=== PATIENT | female | born 1940 | race Caucasian/White ===

== ENCOUNTER 2017-04-16 08:09 | Emergency (ER) | payer OTHER ==
[2017-04-16 08:15] VITALS: BP 158/93; PULSE 84; TEMP 98.4; BMI 29.2
--- NOTE | 2017-04-16 08:48 | PDOC ---
History of Present Illness - General Chief Complaint: Respiratory Stated Complaint: COUGH/ THROAT PAIN Time Seen by Provider: 04/16/17 08:23 History Source: Patient Exam Limitations: No Limitations - History of Present Illness Initial Comments: 04/16/17 08:42 c/o cough/ runny nose and some sinus pressure 04/16/17 13:38 Timing/Duration: reports: just prior to arrival Severity: reports: mild, moderate Associated Symptoms: reports: denies symptoms, cough, dizziness, facial pain, fever/chills Past History - Travel Traveled outside of the country in the last 30 days: No Close contact w/someone who was outside of country & ill: No - Past Medical History Allergies/Adverse Reactions: Allergies Allergy/AdvReac Type Severity Reaction Status Date / Time No Known Allergies Allergy Verified 04/16/17 08:13 Home Medications: Ambulatory Orders Ranitidine [Zantac -] 150 mg PO BID 07/22/15 Apixaban [Eliquis] 5 mg PO BID #0 07/23/15 Diltiazem Cd [Cardizem Cd -] 300 mg PO DAILY 07/23/15 Levothyroxine [Synthroid -] 50 mcg PO DAILY 11/26/15 Metoprolol Succinate [Toprol Xl] 50 mg PO BID 08/25/16 Pravastatin Sodium [Pravachol -] 40 mg PO HS 08/25/16 Acetaminophen [Tylenol .Regular Strength -] 650 mg PO Q6H PRN #0 tablet Cetirizine HCl [Zyrtec -] 10 mg PO DAILY #30 tablet 04/16/17 Anemia: No Asthma: No Cancer: No Cardiac Disorders: Yes (CHRONIC ISCHEMIC HEART DISEASE-Pacemaker) CVA: No COPD: No CHF: No Dementia: No Diabetes: No GI Disorders: Yes (REFLUX; DIVERTICULOSIS; H.PYLORI;H/H) Disorders: No HTN: Yes Hypercholesterolemia: Yes Liver Disease: No Seizures: No Thyroid Disease: Yes - Surgical History Abdominal Surgery: Yes Appendectomy: No Cardiac Surgery: Yes (PACEMAKER) Cholecystectomy: Yes Lung Surgery: No Neurologic Surgery: No Orthopedic Surgery: No - Psycho/Social/Smoking Cessation Hx Anxiety: No Suicidal Ideation: No Smoking Status: No Smoking History: Never smoked Have you smoked in the past 12 months: No Number of Cigarettes Smoked Daily: 0 Information on smoking cessation initiated: No Hx Alcohol Use: No Drug/Substance Use Hx: No Substance Use Type: None Hx Substance Use Treatment: No Review of Systems - Review of Systems Able to Perform ROS?: Yes Is the patient limited Monegasque proficient: Yes Constitutional: Yes: Symptoms Reported, See HPI, Malaise. No: Fever HEENTM: Yes: Symptoms Reported, See HPI, Nose Congestion Respiratory: Yes: Symptoms reported, See HPI, Cough (moist nonproductive ) ABD/GI: No: Symptoms Reported Integumentary: Yes: Symptoms Reported All Other Systems: Reviewed and Negative *Physical Exam - Vital Signs Last Vital Signs Temp Pulse Resp BP Pulse Ox 98.4 F 84 18 158/93 100 04/16/17 08:13 04/16/17 08:13 04/16/17 08:13 04/16/17 08:13 04/16/17 08:13 - Physical Exam General Appearance: Yes: Nourished, Appropriately Dressed. No: Apparent Distress HEENT: positive: GLADYS, TMs Normal (congested / landmarks easily visualized ), Pharynx Normal, Rhinorrhea (clear), Sinus Tenderness Neck: positive: Supple. negative: Tender, Lymphadenopathy (R), Lymphadenopathy (L) Respiratory/Chest: positive: Lungs Clear, Normal Breath Sounds. negative: Respiratory Distress, Wheezing Cardiovascular: positive: Regular Rate Gastrointestinal/Abdominal: positive: Soft. negative: Tender Extremity: positive: Normal Capillary Refill, Normal Inspection, Normal Range of Motion Integumentary: positive: Normal Color, Dry, Warm Neurologic: positive: peer financial counselor II-XII NML intact, Fully Oriented, Alert, Normal Mood/ Affect, Normal Response, Motor Strength 5/5 Progress Note - Progress Note Progress Note: Allergic Rhinitis, no evidence of bacterial infection, therefore will treat with conservative measures as patient reluctant to take any other medications and encourage antihistamine use *DC/Admit/Observation/Transfer Diagnosis at time of Disposition: Allergic rhinitis Qualifiers: Allergic rhinitis trigger: other Allergic rhinitis seasonality: unspecified seasonality Qualified Code(s): J30.89 - Other allergic rhinitis - Discharge Dispostion Disposition: HOME Condition at time of disposition: Stable Admit: No - Prescriptions Prescriptions: Cetirizine HCl [Zyrtec -] 10 mg PO DAILY #30 tablet - Referrals Referrals: Hira Martinez MD [Primary Care Provider] - - Patient Instructions Printed Discharge Instructions: DI for Allergic Rhinitis Additional Instructions: Rest, drink lots of fluids: Teas, water, soups Saltwater gargles. Consider humidifier in room at night Steamy showers/seem to face break up mucus Avoid contact with allergens, exposure to pollens, close windows on a windy day Lots of handwashing and good hygiene Continue [id number] medications for symptomatic relief- may use allergic eyedrops for itching I Continue antihistamines daily until pollen season is over; Zyrtec, Claritin, Majo during the daytime and Benadryl at nighttime as will make sleepy Tylenol or Motrin for fever and pain Followup with private physician in one to 2 days as needed Consider following up with an painter foreman/sas programmer for skin testing and possible allergy shots Return to emergency department for worsened symptoms, fevers, dehydration
--- NOTE | 2017-04-16 09:56 | PDOC ---
History of Present Illness - General Chief Complaint: Respiratory Stated Complaint: COUGH/ THROAT PAIN Time Seen by Provider: 04/16/17 08:23 History Source: Patient Exam Limitations: No Limitations - History of Present Illness Initial Comments: 04/16/17 15:21 Patient came to emergency department for evaluation of nasal congestion, sinus fullness, runny nose, and some moist cough. Denies fever, denies phlegm production, denies chest pain or palpitations, no one at home is sick. Patient states suffers from seasonal ALLERGIES but has not taken any medications for relief of same. 04/16/17 15:26 Timing/Duration: reports: just prior to arrival, getting worse Severity: reports: mild, moderate Associated Symptoms: reports: chest pain/soreness, cough, fever/chills, headache , nasal congestion Past History - Travel Traveled outside of the country in the last 30 days: No Close contact w/someone who was outside of country & ill: No - Past Medical History Allergies/Adverse Reactions: Allergies Allergy/AdvReac Type Severity Reaction Status Date / Time No Known Allergies Allergy Verified 04/16/17 08:13 Home Medications: Ambulatory Orders Ranitidine [Zantac -] 150 mg PO BID 07/22/15 Apixaban [Eliquis] 5 mg PO BID #0 07/23/15 Diltiazem Cd [Cardizem Cd -] 300 mg PO DAILY 07/23/15 Levothyroxine [Synthroid -] 50 mcg PO DAILY 11/26/15 Metoprolol Succinate [Toprol Xl] 50 mg PO BID 08/25/16 Pravastatin Sodium [Pravachol -] 40 mg PO HS 08/25/16 Acetaminophen [Tylenol .Regular Strength -] 650 mg PO Q6H PRN #0 tablet Cetirizine HCl [Zyrtec -] 10 mg PO DAILY #30 tablet 04/16/17 Anemia: No Asthma: No Cancer: No Cardiac Disorders: Yes (CHRONIC ISCHEMIC HEART DISEASE-Pacemaker) CVA: No COPD: No CHF: No Dementia: No Diabetes: No GI Disorders: Yes (REFLUX; DIVERTICULOSIS; H.PYLORI;H/H) Disorders: No HTN: Yes Hypercholesterolemia: Yes Liver Disease: No Seizures: No Thyroid Disease: Yes - Surgical History Abdominal Surgery: Yes Appendectomy: No Cardiac Surgery: Yes (PACEMAKER) Cholecystectomy: Yes Lung Surgery: No Neurologic Surgery: No Orthopedic Surgery: No - Psycho/Social/Smoking Cessation Hx Anxiety: No Suicidal Ideation: No Smoking Status: No Smoking History: Never smoked Have you smoked in the past 12 months: No Number of Cigarettes Smoked Daily: 0 Information on smoking cessation initiated: No Hx Alcohol Use: No Drug/Substance Use Hx: No Substance Use Type: None Hx Substance Use Treatment: No Review of Systems - Review of Systems Able to Perform ROS?: Yes Comments:: 04/16/17 15:27 Is the patient limited Italian proficient: Yes Constitutional: Yes: Symptoms Reported, See HPI, Malaise. No: Fever HEENTM: Yes: Symptoms Reported, See HPI, Nose Congestion. No: Throat Pain Respiratory: Yes: Symptoms reported, See HPI, Cough. No: Wheezing Cardiac (ROS): No: Symptoms Reported Integumentary: Yes: Symptoms Reported, See HPI All Other Systems: Reviewed and Negative *Physical Exam - Vital Signs Last Vital Signs Temp Pulse Resp BP Pulse Ox 98.4 F 84 18 158/93 100 04/16/17 08:13 04/16/17 08:13 04/16/17 08:13 04/16/17 08:13 04/16/17 08:13 - Physical Exam General Appearance: Yes: Appropriately Dressed, Apparent Distress HEENT: positive: GLADYS, Normal ENT Inspection, TMs Normal, Pharynx Normal, Rhinorrhea Neck: positive: Supple Respiratory/Chest: positive: Lungs Clear, Normal Breath Sounds Gastrointestinal/Abdominal: positive: Tender, Soft Extremity: positive: Normal Capillary Refill, Normal Inspection, Tender Integumentary: positive: Dry, Pale. 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 And follow-up with her PMD this week *DC/Admit/Observation/Transfer Diagnosis at time of Disposition: Allergic rhinitis Qualifiers: Allergic rhinitis trigger: other Allergic rhinitis seasonality: unspecified seasonality Qualified Code(s): J30.89 - Other allergic rhinitis - Discharge Dispostion Disposition: HOME Condition at time of disposition: Stable - Prescriptions Prescriptions: Cetirizine HCl [Zyrtec -] 10 mg PO DAILY #30 tablet - Referrals Referrals: Hira Martinez MD [Primary Care Provider] - - Patient Instructions Printed Discharge Instructions: DI for Allergic Rhinitis Additional Instructions: Rest, drink lots of fluids: Teas, water, soups Saltwater gargles. Consider humidifier in room at night Steamy showers/seem to face break up mucus Avoid contact with allergens, exposure to pollens, close windows on a windy day Lots of handwashing and good hygiene Continue [id number]-rin-[id number] medications for symptomatic relief- may use allergic eyedrops for itching I Continue antihistamines daily until pollen season is over; Zyrtec, Claritin, Majo during the daytime and Benadryl at nighttime as will make sleepy Tylenol or Motrin for fever and pain Followup with private physician in one to 2 days as needed Consider following up with an hatchery helper/automatic line set up mechanic for skin testing and possible allergy shots Return to emergency department for worsened symptoms, fevers, dehydration
== END 2017-04-16 08:54 | disposition home or self-care (01) ==
LOC: JERFT 08:09
DX: J30.89 Other allergic rhinitis (principal); E78.00 Pure hypercholesterolemia, unspecified; I25.9 Chronic ischemic heart disease, unspecified; I10 Essential (primary) hypertension; Z95.0 Presence of cardiac pacemaker
CPT/HCPCS: 99281-25

== ENCOUNTER 2019-03-05 18:30 | Emergency (ER) | payer OTHER ==
[2019-03-05] MEDS ORDERED: ACETAMINOPHEN 325 MG TABLET (FP) ONE (19:02)
[2019-03-05 19:04] VITALS: BP 143/62; PULSE 86; TEMP 100.7; BMI 28.9
[2019-03-05] MEDS ORDERED: ACETAMINOPHEN 325 MG TABLET (FP) PO ONE (19:04)
--- NOTE | 2019-03-05 21:12 | PDOC ---
History of Present Illness - General Chief Complaint: Rash Stated Complaint: ABD PAIN Time Seen by Provider: 03/05/19 20:34 History Source: Patient Exam Limitations: No Limitations - History of Present Illness Initial Comments: 03/05/19 21:09 78 year old female with history of pacemaker, thyroid, HTN, cholesterol and surgical history of hysterectomy, cholecystectomy, repair of prolapse bladder, presents with rash to left side x 7 days. Reports rash is painful, itching, burning and hot. Treated with acetaminophen with some relief. Timing/Duration: reports: week Severity: Yes: severe Location: reports: torso Respiratory Risk Factors: reports: no cause identified Modifying Factors: improves with: calamine lotion, other (acetaminophen) Associated Symptoms: reports: blisters, rash, tingling Past History - Travel Traveled outside of the country in the last 30 days: No Close contact w/someone who was outside of country & ill: No - Past Medical History Allergies/Adverse Reactions: Allergies Allergy/AdvReac Type Severity Reaction Status Date / Time No Known Allergies Allergy Verified 03/05/19 18:54 Home Medications: Ambulatory Orders Apixaban [Eliquis] 5 mg PO BID #0 07/23/15 Diltiazem Cd [Cardizem Cd -] 240 mg PO DAILY 07/23/15 Levothyroxine [Synthroid -] 50 mcg PO DAILY 11/26/15 Metoprolol Succinate [Toprol Xl] 50 mg PO BID 08/25/16 Pravastatin Sodium [Pravachol -] 40 mg PO HS 08/25/16 Acetaminophen [Tylenol .Regular Strength -] 650 mg PO Q6H PRN #0 tablet Acetaminophen [8Hr Arthritis Pain Relief] 650 mg PO TID #20 tablet.er 03/05/19 Alendronate Sodium [Binosto] 70 mg PO WEEKLY 03/05/19 Cholecalciferol (Vitamin D3) [Vitamin D3 -] 2,000 unit PO DAILY 03/05/19 Diclofenac Sodium [Voltaren] 100 gm TP ASDIR 03/05/19 Fluticasone Propionate [Flonase Allergy Relief] 9.9 ml NS ASDIR 03/05/19 Omeprazole 20 mg PO DAILY 03/05/19 Valacyclovir HCl [Valtrex -] 1,000 mg PO TID #21 tablet 03/05/19 Anemia: No Asthma: No Cancer: No Cardiac Disorders: Yes (CHRONIC ISCHEMIC HEART DISEASE-Pacemaker) CVA: No COPD: No CHF: No Dementia: No Diabetes: No GI Disorders: Yes (REFLUX; DIVERTICULOSIS; H.PYLORI;H/H) Disorders: No HTN: Yes Hypercholesterolemia: Yes Liver Disease: No Seizures: No Thyroid Disease: Yes - Surgical History Abdominal Surgery: Yes Appendectomy: No Cardiac Surgery: Yes (PACEMAKER) Cholecystectomy: Yes Lung Surgery: No Neurologic Surgery: No Orthopedic Surgery: No - Suicide/Smoking/Psychosocial Hx Smoking Status: No Smoking History: Never smoked Have you smoked in the past 12 months: No Number of Cigarettes Smoked Daily: 0 Hx Alcohol Use: No Drug/Substance Use Hx: No Substance Use Type: None Hx Substance Use Treatment: No Review of Systems - Review of Systems Able to Perform ROS?: No Is the patient limited Icelandic proficient: No Constitutional: No: Chills, Fever, Malaise HEENTM: No: Throat Pain, Throat Swelling, Other Respiratory: No: Cough, Shortness of Breath Cardiac (ROS): No: Lightheadedness, Palpitations ABD/GI: No: Nausea, Poor Appetite, Poor Fluid Intake, Vomiting : No: Pain, Urgency Musculoskeletal: No: Back Pain, Muscle Weakness Integumentary: Yes: Lesions, Rash. No: Bruising, Erythema Neurological: Yes: Tingling Psychiatric: No: Frequent Crying, Stressors *Physical Exam - Vital Signs Last Vital Signs Temp Pulse Resp BP Pulse Ox 100.7 F H 86 18 143/62 95 03/05/19 19:03 03/05/19 19:03 03/05/19 19:03 03/05/19 19:03 03/05/19 19:03 - Physical Exam General Appearance: Yes: Nourished, Appropriately Dressed HEENT: positive: TMs Normal, Pharynx Normal Neck: positive: Supple. negative: Lymphadenopathy (R), Lymphadenopathy (L) Respiratory/Chest: positive: Lungs Clear Cardiovascular: positive: Regular Rhythm, Regular Rate Musculoskeletal: positive: Normal Inspection. negative: CVA Tenderness Extremity: positive: Normal Capillary Refill Integumentary: positive: Rash, Ecchymosis, Other (+ erythematous blistering left rib area anterior and posteriorly. Rash does not cross midline.) Neurologic: positive: Fully Oriented, Alert ED Treatment Course - Medications Given in the ED: ED Medications Discontinued Medications Generic Name Dose Route Start Last Admin Trade Name Annie PRN Reason Stop Dose Admin Acetaminophen 650 mg 03/05/19 19:04 03/05/19 19:05 Tylenol - PO 03/05/19 19:05 650 mg NOW ONE Administration Medical Decision Making - Medical Decision Making 03/05/19 21:34 78 year old female with history of pacemaker, thyroid, HTN, cholesterol and surgical history of hysterectomy, cholecystectomy, repair of prolapse bladder, presents with rash to left side x 7 days. Plan: shingles Rx: valcyclovir *DC/Admit/Observation/Transfer Diagnosis at time of Disposition: Shingles rash Qualifiers: Herpes zoster complications: without complications Qualified Code(s): B02.9 - Zoster without complications - Discharge Dispostion Disposition: HOME Condition at time of disposition: Good Decision to Admit order: No - Prescriptions Prescriptions: Acetaminophen [8Hr Arthritis Pain Relief] 650 mg PO TID #20 tablet.er Valacyclovir HCl [Valtrex -] 1,000 mg PO TID #21 tablet - Referrals - Patient Instructions Printed Discharge Instructions: DI for Shingles Additional Instructions: Please wear loose clothing Take acetaminophen as needed for pain Take prescribed medication until completed Call primary physician for follow up appointment tomorrow Print Language: ARGENTINE - Post Discharge Activity
== END 2019-03-05 21:57 | disposition home or self-care (01) ==
LOC: JERFT 18:30
DX: B02.9 Zoster without complications (principal); I25.9 Chronic ischemic heart disease, unspecified; I10 Essential (primary) hypertension; E78.00 Pure hypercholesterolemia, unspecified; K21.9 Gastro-esophageal reflux disease without esophagitis; Z95.0 Presence of cardiac pacemaker
CPT/HCPCS: 99281-25

== ENCOUNTER 2019-03-07 15:44 | Emergency (ER) | payer OTHER ==
[2019-03-07 15:57] VITALS: BP 154/70; PULSE 81; TEMP 98.1; BMI 28.8
--- NOTE | 2019-03-07 19:07 | PDOC ---
History of Present Illness - General Chief Complaint: Rash Stated Complaint: BACK PAIN Time Seen by Provider: 03/07/19 18:19 History Source: Patient Exam Limitations: Language Barrier - History of Present Illness Initial Comments: 03/07/19 18:57 Pt is a 78yo F with PMH of Pacemaker, HTN, HLD, Hypothyroidism presenting to ED with complaints of painful rash from back to abdomen x1 week. Pt was seen here 2 days ago and was given Rx for Valcyclovir but was unable to get it filled at the pharmacy it was sent to due to insurance. She has been taking Tylenol for the pain. Denies fever, chills, chest pain, SOB, cough, injury. No history of HIV or use of immunocompromising medications. Past History - Past Medical History Allergies/Adverse Reactions: Allergies Allergy/AdvReac Type Severity Reaction Status Date / Time No Known Allergies Allergy Verified 03/05/19 18:54 Home Medications: Ambulatory Orders Apixaban [Eliquis] 5 mg PO BID #0 07/23/15 Diltiazem Cd [Cardizem Cd -] 240 mg PO DAILY 07/23/15 Levothyroxine [Synthroid -] 50 mcg PO DAILY 11/26/15 Metoprolol Succinate [Toprol Xl] 50 mg PO BID 08/25/16 Pravastatin Sodium [Pravachol -] 40 mg PO HS 08/25/16 Acetaminophen [Tylenol .Regular Strength -] 650 mg PO Q6H PRN #0 tablet Acetaminophen [8Hr Arthritis Pain Relief] 650 mg PO TID #20 tablet.er 03/05/19 Alendronate Sodium [Binosto] 70 mg PO WEEKLY 03/05/19 Cholecalciferol (Vitamin D3) [Vitamin D3 -] 2,000 unit PO DAILY 03/05/19 Diclofenac Sodium [Voltaren] 100 gm TP ASDIR 03/05/19 Fluticasone Propionate [Flonase Allergy Relief] 9.9 ml NS ASDIR 03/05/19 Omeprazole 20 mg PO DAILY 03/05/19 Valacyclovir HCl [Valtrex -] 1,000 mg PO TID #21 tablet 03/05/19 Valacyclovir HCl [Valtrex -] 1,000 mg PO TID #21 tablet 03/07/19 Anemia: No Asthma: No Cancer: No Cardiac Disorders: Yes (CHRONIC ISCHEMIC HEART DISEASE-Pacemaker) CVA: No COPD: No CHF: No Dementia: No Diabetes: No GI Disorders: Yes (REFLUX; DIVERTICULOSIS; H.PYLORI;H/H) Disorders: No HTN: Yes Hypercholesterolemia: Yes Liver Disease: No Seizures: No Thyroid Disease: Yes - Surgical History Abdominal Surgery: Yes Appendectomy: No Cardiac Surgery: Yes (PACEMAKER) Cholecystectomy: Yes Lung Surgery: No Neurologic Surgery: No Orthopedic Surgery: No - Suicide/Smoking/Psychosocial Hx Smoking Status: No Smoking History: Never smoked Have you smoked in the past 12 months: No Number of Cigarettes Smoked Daily: 0 Information on smoking cessation initiated: No Hx Alcohol Use: No Drug/Substance Use Hx: No Substance Use Type: None Hx Substance Use Treatment: No Review of Systems - Review of Systems Constitutional: No: Symptoms Reported HEENTM: No: Symptoms Reported Respiratory: No: Symptoms reported Cardiac (ROS): No: Symptoms Reported ABD/GI: No: Symptoms Reported : No: Symptoms Reported Musculoskeletal: No: Symptoms Reported Integumentary: Yes: See HPI, Erythema, Lesions (vesicles), Rash, Other (pain) Neurological: No: Symptoms reported *Physical Exam - Vital Signs Last Vital Signs Temp Pulse Resp BP Pulse Ox 98.1 F 81 16 154/70 98 03/07/19 15:54 03/07/19 15:54 03/07/19 15:54 03/07/19 15:54 03/07/19 15:54 - Physical Exam General Appearance: Yes: Nourished, Appropriately Dressed. No: Apparent Distress HEENT: positive: EOMI, GLADYS, Normal ENT Inspection, TMs Normal, Pharynx Normal. negative: Lesions Neck: positive: Trachea midline, Supple. negative: Lymphadenopathy (R), Lymphadenopathy (L) Respiratory/Chest: positive: Lungs Clear, Normal Breath Sounds. negative: Crackles, Wheezing Cardiovascular: positive: Regular Rhythm, Regular Rate, S1, S2. negative: Edema , JVD, Murmur Vascular Pulses: Carotid (R): 2+, Carotid (L): 2+, Dorsalis-Pedis (R): 2+, Doralis-Pedis (L): 2+ Gastrointestinal/Abdominal: positive: Normal Bowel Sounds, Soft. negative: Tenderness Musculoskeletal: negative: CVA Tenderness Extremity: positive: Normal Capillary Refill Integumentary: positive: Normal Color, Dry, Warm, Rash (erythematous and vesicles in T3 or T4 distribution. 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 Pt was seen here 2 days ago and was given Rx for Valcyclovir but was unable to get it filled at the pharmacy it was sent to due to insurance. She has been taking Tylenol for the pain. Denies fever, chills, chest pain, SOB, cough, injury. No history of HIV or use of immunocompromising medications. Vitals: wnl PE: vesicular lesions on erythematous base in dermatomal distribution from back to sternum underneath breast. DD: shingles, cellulitis, impitigo, PV, BP pt seen here 2 days ago for same complaint. Given Rx for Valacyclovir to pharmacy. Insurance does not cover Rx at that pharmacy. Will resend to another pharmacy. pt stable for dc, not immunocompromised. Rx for valacyclovir sent. Given return precautions. *DC/Admit/Observation/Transfer Diagnosis at time of Disposition: Shingles rash Qualifiers: Herpes zoster complications: without complications Qualified Code(s): B02.9 - Zoster without complications - Discharge Dispostion Disposition: HOME Condition at time of disposition: Good Decision to Admit order: No - Prescriptions Prescriptions: Valacyclovir HCl [Valtrex -] 1,000 mg PO TID #21 tablet - Referrals - Patient Instructions Printed Discharge Instructions: DI for Shingles Additional Instructions: You were seen in the emergency room for a rash. You have Shingles. A prescription was sent to [facility]. Please take as directed. Please make an appointment with your primary care doctor this week. Come back to the emergency room if pain gets worse, you have fever, you have pain in your eyes or if any new concerning symptom develops. Thank you - Post Discharge Activity
--- NOTE | 2019-03-07 20:24 | PDOC ---
Attending Attestation - Resident Resident Name: Lashon Spicer - ED Attending Attestation I have performed the following: I have examined & evaluated the patient, The case was reviewed & discussed with the resident, I agree w/resident's findings & plan, Exceptions are as noted - HPI HPI: 03/07/19 20:22 78yo F with PMH of Pacemaker, HTN, HLD, Hypothyroidism here with rash for 9 days. 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 requesting meds to be sent to [facility]. no n/v no f/c still has pain, has been taking tyelnol for pain. - Physicial Exam PE: 03/07/19 20:23 awake alert lungs clear bilaterally heart rrr no mrg left lateral chest with zosteriform rash, vesicles . no scabbing. alert oriented - Medical Decision Making 03/07/19 20:24 pt with shingles will send valtrex to [facility]. continue tylenol for pain, warning precautions given. told to fu with pcp.
== END 2019-03-07 20:41 | disposition home or self-care (01) ==
LOC: JER 15:44
DX: B02.9 Zoster without complications (principal); I10 Essential (primary) hypertension; E78.5 Hyperlipidemia, unspecified; E03.9 Hypothyroidism, unspecified; K21.9 Gastro-esophageal reflux disease without esophagitis; Z95.0 Presence of cardiac pacemaker
CPT/HCPCS: 99281-25

== ENCOUNTER 2019-03-15 16:22 | Emergency (ER) | payer OTHER ==
[2019-03-15 16:39] VITALS: BP 125/77; PULSE 58; TEMP 98; BMI 27.1
--- NOTE | 2019-03-15 17:36 | PDOC ---
History of Present Illness - General Chief Complaint: Rash Stated Complaint: SENT BY PCP Time Seen by Provider: 03/15/19 16:46 History Source: Patient Exam Limitations: No Limitations - History of Present Illness Initial Comments: 03/15/19 17:46 Patient came for evaluation after 2 visits previous for treatment of postherpetic neuralgia. Had outbreak of shingles to her left flank on March 05 and returned here March 07 for reevaluation. States wounds and herpetic lesions are healing and scabbing however has significant pain to her flank that's preventing her from sleeping well. States was only given Tylenol for pain relief. Denies fever, URI symptoms, evidence of cellulitis/infection to the area. Timing/Duration: unsure, constant Severity: moderate, severe Past History - Travel Traveled outside of the country in the last 30 days: No Close contact w/someone who was outside of country & ill: No - Past Medical History Allergies/Adverse Reactions: Allergies Allergy/AdvReac Type Severity Reaction Status Date / Time No Known Allergies Allergy Verified 03/05/19 18:54 Home Medications: Ambulatory Orders Apixaban [Eliquis] 5 mg PO BID #0 07/23/15 Diltiazem Cd [Cardizem Cd -] 240 mg PO DAILY 07/23/15 Levothyroxine [Synthroid -] 50 mcg PO DAILY 11/26/15 Metoprolol Succinate [Toprol Xl] 50 mg PO BID 08/25/16 Pravastatin Sodium [Pravachol -] 40 mg PO HS 08/25/16 Acetaminophen [Tylenol .Regular Strength -] 650 mg PO Q6H PRN #0 tablet Acetaminophen [8Hr Arthritis Pain Relief] 650 mg PO TID #20 tablet.er 03/05/19 Alendronate Sodium [Binosto] 70 mg PO WEEKLY 03/05/19 Cholecalciferol (Vitamin D3) [Vitamin D3 -] 2,000 unit PO DAILY 03/05/19 Diclofenac Sodium [Voltaren] 100 gm TP ASDIR 03/05/19 Fluticasone Propionate [Flonase Allergy Relief] 9.9 ml NS ASDIR 03/05/19 Omeprazole 20 mg PO DAILY 03/05/19 Valacyclovir HCl [Valtrex -] 1,000 mg PO TID #21 tablet 03/05/19 Valacyclovir HCl [Valtrex -] 1,000 mg PO TID #21 tablet 03/07/19 Lidocaine 5% Patch [Lidoderm Patch -] 1 patch TP DAILY #30 patch 03/15/19 Oxycodone HCl/Acetaminophen [Percocet 5-325 mg Tablet -] 1 - 2 tab PO Q4H PRN # 10 tablet MDD 4 03/15/19 Oxycodone HCl/Acetaminophen [Percocet 5-325 mg Tablet -] 1 - 2 tab PO Q4H PRN # 10 tablet MDD 4 03/15/19 Anemia: No Asthma: No Cancer: No Cardiac Disorders: Yes (CHRONIC ISCHEMIC HEART DISEASE-Pacemaker) CVA: No COPD: No CHF: No Dementia: No Diabetes: No GI Disorders: Yes (REFLUX; DIVERTICULOSIS; H.PYLORI;H/H) Disorders: No HTN: Yes Hypercholesterolemia: Yes Liver Disease: No Seizures: No Thyroid Disease: Yes - Surgical History Abdominal Surgery: Yes Appendectomy: No Cardiac Surgery: Yes (PACEMAKER) Cholecystectomy: Yes Lung Surgery: No Neurologic Surgery: No Orthopedic Surgery: No - Immunization History Immunization Up to Date: No - Suicide/Smoking/Psychosocial Hx Smoking Status: No Smoking History: Never smoked Have you smoked in the past 12 months: No Number of Cigarettes Smoked Daily: 0 Information on smoking cessation initiated: No Hx Alcohol Use: No Drug/Substance Use Hx: No Substance Use Type: None Hx Substance Use Treatment: No Review of Systems - Review of Systems Able to Perform ROS?: Yes Is the patient limited Fijian proficient: Yes Constitutional: Yes: Symptoms Reported, See HPI, Malaise. No: Chills, Fever HEENTM: Yes: See HPI. No: Symptoms Reported Respiratory: Yes: See HPI Cardiac (ROS): No: Symptoms Reported ABD/GI: No: Symptoms Reported Integumentary: Yes: Symptoms Reported, See HPI, Pruritus, Rash All Other Systems: Reviewed and Negative *Physical Exam - Vital Signs Last Vital Signs Temp Pulse Resp BP Pulse Ox 98.0 F 58 L 16 125/77 98 03/15/19 16:34 03/15/19 16:34 03/15/19 16:34 03/15/19 16:34 03/15/19 16:34 - Physical Exam General Appearance: Yes: Nourished, Appropriately Dressed, Apparent Distress, Mild Distress HEENT: positive: GLADYS, Normal ENT Inspection, TMs Normal, Pharynx Normal Neck: positive: Supple. negative: Tender Respiratory/Chest: positive: Lungs Clear, Normal Breath Sounds Gastrointestinal/Abdominal: positive: Soft. negative: Tender Musculoskeletal: positive: Normal Inspection Extremity: positive: Normal Capillary Refill, Normal Inspection, Normal Range of Motion Integumentary: positive: Rash, Other (scabbed, excoriated lesions that extend from sternum under left breast and extends wraparound to spine in dermatomes T8- 9 and 10 of left side. No vesicles noted, all scabbed and skin denuded. No evidence of infection.) Neurologic: positive: collision mechanic II-XII NML intact, Fully Oriented, Alert, Normal Mood/ Affect, Normal Response, Motor Strength 5/5 *DC/Admit/Observation/Transfer Diagnosis at time of Disposition: Neuralgia, post-herpetic - Discharge Dispostion Disposition: HOME Condition at time of disposition: Stable Decision to Admit order: No - Prescriptions Prescriptions: Oxycodone HCl/Acetaminophen [Percocet 5-325 mg Tablet -] 1 - 2 tab PO Q4H PRN # 10 tablet MDD 4 PRN Reason: Pain - Referrals Referrals: ON STAFF,NOT [Primary Care Provider] - - Patient Instructions Printed Discharge Instructions: DI for Shingles Additional Instructions: Rest, keep cool and dry- avoid strenuous activity or hot /humid environments Less hot showers, no abrasive soaps May use heavy creams like Eucerin or Cetaphil to keep skin moist May apply Aveeno, calamine lotion, [id number] hydrocortisone creams as needed for symptoms May use Benadryl at night for antihistamine, Zyrtec/ Majo or Claritin for daytime antihistamine use to help with itching Lidoderm patches daily to provide numbing and pain relief of severe shingles May use Percocet tablets for severe pain as needed, take one half a tablet understanding whelming very dizzy and sleepy Followup with PMD in one week if no resolution Make appointment with wafer cleaner for evaluation when possible - Post Discharge Activity
== END 2019-03-15 17:54 | disposition home or self-care (01) ==
LOC: JERFT 16:22
DX: B02.29 Other postherpetic nervous system involvement (principal); I25.9 Chronic ischemic heart disease, unspecified; I10 Essential (primary) hypertension; E78.00 Pure hypercholesterolemia, unspecified; E03.9 Hypothyroidism, unspecified; Z87.19 Personal history of other diseases of the digestive system; Z95.0 Presence of cardiac pacemaker
CPT/HCPCS: 99281-25

== ENCOUNTER 2022-12-19 15:43 | Emergency (ER) | payer OTHER ==
[2022-12-19 16:18] VITALS: TEMP 98.3; BMI 27.8
[2022-12-19 17:04] VITALS: BP 165/64; PULSE 54; RESP 22
[2022-12-19 17:10] LABS: EOS % 2.2 % (0-4.5); HEMATOCRIT 34.8 % (32.4-45.2); HEMOGLOBIN 11.4 GM/dL (10.7-15.3); MCHC 32.7 g/dl (32.0-36.0); MEAN CELL VOLUME 82.5 fl (80-96); MEAN PLT VOLUME 7.7 fl (7.5-11.1); NEUT % 60.8 % (42.8-82.8); PLATELET COUNT 255 10^3/uL (134-434); RBC 4.22 M/mm3 (3.60-5.2); RDW 16.1 % (11.6-15.6)
[2022-12-19 17:28] LABS: ACTIVATED PTT 37.3 SECONDS (25.2-36.5); INR 1.6 (0.83-1.09); PROTHROMBIN TIME (PATIENT) 18.5 SEC (9.7-13.0)
[2022-12-19 17:35] LABS: CHLORIDE 103 mmol/L (98-107); SODIUM 138 mmol/L (136-145)
[2022-12-19 17:37] LABS: ANION GAP 10 MMOL/L (8-16); BLOOD UREA NITROGEN 16.1 mg/dL (7-18); CALCIUM 8.7 mg/dL (8.5-10.1); CO2 25 mmol/L (21-32); GLUCOSE,RANDOM 99 mg/dL (74-106)
[2022-12-19 17:38] LABS: ALBUMIN 3.6 g/dl (3.4-5.0)
[2022-12-19 17:40] LABS: SGOT/AST 22 U/L (15-37); SGPT/ALT 20 U/L (13-61)
[2022-12-19 17:41] LABS: CREATININE 0.8 mg/dL (0.55-1.3)
[2022-12-19 17:42] LABS: BILIRUBIN,TOTAL 0.4 mg/dL (0.2-1)
[2022-12-19 17:43] LABS: ALK PHOS 83 U/L (45-117)
[2022-12-19 17:45] LABS: N-TERMINAL BNP 600.3 pg/ml (5-450)
[2022-12-19] MEDS ORDERED: ASPIRIN 81 MG CHEWABLE TABLETS PO ONE (18:30)
[2022-12-19] MEDS ORDERED: ASPIRIN 81 MG CHEWABLE TABLETS ONE (19:27)
[2022-12-19] MEDS ORDERED: CLOPIDOGREL BISULFATE 300 MG TABLET PO ONE (19:30)
[2022-12-19] MEDS ORDERED: NITROGLYCERIN SUBLINGUAL 1/150 0.4 MG TAB SL ONE (19:50)
[2022-12-19] MEDS ORDERED: CLOPIDOGREL BISULFATE 300 MG TABLET ONE (20:08)
== END 2022-12-19 20:00 | disposition short-term general hospital (02) ==
LOC: JER 15:43
DX: I21.3 ST elevation (STEMI) myocardial infarction of unspecified site (principal); R07.9 Chest pain, unspecified
CPT/HCPCS: 0241U-QW; 36415; 71046-TC-FY; 80053; 83880; 84443; 84484; 85025; 85610; 85730; 93005; 93010; 99285-25

== ENCOUNTER 2023-10-31 09:03 | Inpatient (IN) | payer OTHER ==
[2023-10-31 09:32] VITALS: BMI 32.6
[2023-10-31] MEDS ORDERED: morphine CARPU-JECT 4 MG/1 ML DISP.SYRIN IVPUSH ONE (10:18)
[2023-10-31] MEDS ORDERED: morphine SULFATE 4 MG/ML VIAL ONE ×2 (11:07→16:36)
[2023-10-31] MEDS ORDERED: morphine SULFATE 4 MG/ML VIAL IVPUSH ONE (15:32)
[2023-11-01 02:17] LABS: HEMATOCRIT 33.2 % (32.4-45.2); HEMOGLOBIN 10.6 GM/dL (10.7-15.3); MCH 25.2 pg (25.7-33.7); MEAN CELL VOLUME 78.8 fl (80-96); MEAN PLT VOLUME 7.3 fl (7.5-11.1); PLATELET COUNT 275 10^3/uL (134-434); RBC 4.21 M/mm3 (3.60-5.2); RDW 16.8 % (11.6-15.6); WHITE BLOOD COUNT 13.1 K/mm3 (4.0-10.0)
[2023-11-01 02:40] LABS: POTASSIUM 3.7 mmol/L (3.5-5.1)
[2023-11-01 02:43] LABS: CALCIUM 8.3 mg/dL (8.5-10.1)
[2023-11-01 02:44] LABS: ALBUMIN 3.5 g/dl (3.4-5.0); BLOOD UREA NITROGEN 16.2 mg/dL (7-18)
[2023-11-01 02:47] LABS: CREATININE 0.9 mg/dL (0.55-1.3)
[2023-11-01 02:48] LABS: BILIRUBIN,TOTAL 0.9 mg/dL (0.2-1); TOT PROT 7.7 g/dl (6.4-8.2)
[2023-11-01] MEDS ORDERED: ACETAMINOPHEN 1000 MG/100 ML BAG IVPB PRN (04:09)
[2023-11-01] MEDS: LEVOTHYROXINE NA 50 MCG TABLET (FP) PO SCH (07:36)
[2023-11-01] MEDS: PANTOPRAZOLE 20 MG TABLET PO SCH (09:12)
[2023-11-01] MEDS: LIDOCAINE 4% PATCH TP SCH (09:12)
[2023-11-01] MEDS: POLYETHYLENE GLYCOL (HEALTHYLAX) 3350 17 GM PACKET PO SCH (09:12)
[2023-11-01] MEDS: APIXABAN 5 MG TABLET PO SCH ×2 (09:13→21:29)
[2023-11-01] MEDS: LISINOPRIL 5 MG TABLET PO SCH ×2 (09:13→21:29)
[2023-11-01] MEDS: INSULIN SLIDING SCALE (NOVOLOG) 1 VIAL SQ SCH ×4 (12:27→21:30)
[2023-11-01] MEDS: MEMANTINE HCL 10 MG TABLET (FP) PO SCH ×2 (12:28→21:29)
[2023-11-01] MEDS ORDERED: SODIUM CHLORIDE 1,000 ML IV SCH (15:30)
[2023-11-01] MEDS: SODIUM CHLORIDE 1,000 ML IV SCH (17:54)
[2023-11-01] MEDS ORDERED: VANCOMYCIN/WATER FOR INJ (PEG) 1,000 MG/200 ML BAG IVPB ONE (18:15)
[2023-11-01] MEDS: CEFTRIAXONE 1 GM in DEXTROSE 5%-WATER - 50 ML IVPB SCH (18:34)
[2023-11-01] MEDS ORDERED: INSULIN (NOVOLOG) ASPART 100 UNITS/ML 10ML VIAL ONE (21:06)
[2023-11-01] MEDS: ATORVASTATIN CA 10 MG TABLET (FP) PO SCH (21:30)
[2023-11-01] MEDS: LIDOCAINE PATCH REMOVAL MC SCH (21:33)
[2023-11-02 00:11] LABS: EPI CELLS 25 /uL (0-25.1); HYALINE CASTS 0 /uL (0-3.1); PH,URINE 5.5 (5.0-8.0); URINE APPEARANCE CLOUDY; URINE BACTERIA 3837 /uL (0-1359); URINE BILIRUBIN NEGATIVE (NEGATIVE); URINE COLOR YELLOW; URINE GLUCOSE (UA) 3+ (NEGATIVE); URINE KETONE TRACE (NEGATIVE); URINE LEUK ESTERASE TRACE (NEGATIVE); URINE NITRITE NEGATIVE (NEGATIVE); URINE PROTEIN 1+ (NEGATIVE); URINE RBC 16 /uL (0-23.9); URINE WBC 354 /uL (0-25.8)
[2023-11-02] MEDS: LEVOTHYROXINE NA 50 MCG TABLET (FP) PO SCH (06:26)
[2023-11-02] MEDS: INSULIN SLIDING SCALE (NOVOLOG) 1 VIAL SQ SCH ×4 (06:42→23:42)
[2023-11-02 09:05] LABS: BASO % 0.4 % (0-2.0); EOS % 3.2 % (0-4.5); HEMATOCRIT 29.1 % (32.4-45.2); HEMOGLOBIN 9.4 GM/dL (10.7-15.3); LYMPH % 9.5 % (8-40); MCH 25.4 pg (25.7-33.7); MCHC 32.3 g/dl (32.0-36.0); MEAN CELL VOLUME 78.7 fl (80-96); MEAN PLT VOLUME 8.1 fl (7.5-11.1); MONO % 9.1 % (3.8-10.2); NEUT % 77.8 % (42.8-82.8); PLATELET COUNT 222 10^3/uL (134-434); RDW 16.6 % (11.6-15.6); WHITE BLOOD COUNT 10.8 K/mm3 (4.0-10.0)
[2023-11-02 09:21] LABS: POTASSIUM 3.8 mmol/L (3.5-5.1)
[2023-11-02 09:24] LABS: CALCIUM 7.6 mg/dL (8.5-10.1)
[2023-11-02 09:28] LABS: CREATININE 0.6 mg/dL (0.55-1.3)
[2023-11-02] MEDS: POLYETHYLENE GLYCOL (HEALTHYLAX) 3350 17 GM PACKET PO SCH (10:39)
[2023-11-02] MEDS: LIDOCAINE 4% PATCH TP SCH (10:39)
[2023-11-02] MEDS: CEFTRIAXONE 1 GM in DEXTROSE 5%-WATER - 50 ML IVPB SCH (10:39)
[2023-11-02] MEDS: PANTOPRAZOLE 20 MG TABLET PO SCH (10:40)
[2023-11-02] MEDS: MEMANTINE HCL 10 MG TABLET (FP) PO SCH ×2 (10:40→22:34)
[2023-11-02] MEDS: APIXABAN 5 MG TABLET PO SCH (10:40)
[2023-11-02] MEDS: LISINOPRIL 5 MG TABLET PO SCH ×2 (10:40→22:34)
[2023-11-02] MEDS: ACETAMINOPHEN 325 MG TABLET (FP) PO PRN (16:06)
[2023-11-02] MEDS: LIDOCAINE PATCH REMOVAL MC SCH (22:34)
[2023-11-02] MEDS: ATORVASTATIN CA 10 MG TABLET (FP) PO SCH (22:34)
[2023-11-02] MEDS: SODIUM CHLORIDE 1,000 ML IV SCH ×2 (23:38→23:39)
[2023-11-03] MEDS: INSULIN SLIDING SCALE (NOVOLOG) 1 VIAL SQ SCH ×3 (07:07→22:48)
[2023-11-03] MEDS: LEVOTHYROXINE NA 50 MCG TABLET (FP) PO SCH (07:08)
[2023-11-03 08:00] LABS: BASO % 0.7 % (0-2.0); EOS % 3.7 % (0-4.5); HEMATOCRIT 28.3 % (32.4-45.2); HEMOGLOBIN 9.2 GM/dL (10.7-15.3); LYMPH % 12.6 % (8-40); MCH 25.4 pg (25.7-33.7); MCHC 32.4 g/dl (32.0-36.0); MEAN CELL VOLUME 78.4 fl (80-96); MEAN PLT VOLUME 8.2 fl (7.5-11.1); MONO % 10.8 % (3.8-10.2); NEUT % 72.2 % (42.8-82.8); PLATELET COUNT 216 10^3/uL (134-434); RBC 3.61 M/mm3 (3.60-5.2); RDW 16.9 % (11.6-15.6); WHITE BLOOD COUNT 10.3 K/mm3 (4.0-10.0)
[2023-11-03] MEDS: MEMANTINE HCL 10 MG TABLET (FP) PO SCH ×2 (10:58→22:48)
[2023-11-03] MEDS: POLYETHYLENE GLYCOL (HEALTHYLAX) 3350 17 GM PACKET PO SCH (10:58)
[2023-11-03] MEDS: CEFTRIAXONE 1 GM in DEXTROSE 5%-WATER - 50 ML IVPB SCH (10:58)
[2023-11-03] MEDS: PANTOPRAZOLE 20 MG TABLET PO SCH (10:58)
[2023-11-03] MEDS: LIDOCAINE 4% PATCH TP SCH (10:58)
[2023-11-03] MEDS: LISINOPRIL 5 MG TABLET PO SCH ×2 (10:58→22:48)
[2023-11-03] MEDS: ACETAMINOPHEN 325 MG TABLET (FP) PO PRN (13:39)
[2023-11-03] MEDS: SODIUM CHLORIDE 1,000 ML IV SCH (22:46)
[2023-11-03] MEDS: LIDOCAINE PATCH REMOVAL MC SCH (22:48)
[2023-11-03] MEDS: ATORVASTATIN CA 10 MG TABLET (FP) PO SCH (22:48)
[2023-11-04] MEDS: LEVOTHYROXINE NA 50 MCG TABLET (FP) PO SCH (06:20)
[2023-11-04] MEDS: INSULIN SLIDING SCALE (NOVOLOG) 1 VIAL SQ SCH ×4 (06:27→21:55)
[2023-11-04] MEDS: SODIUM CHLORIDE 1,000 ML IV SCH ×2 (08:50→17:57)
[2023-11-04 09:06] LABS: BASO % 0.8 % (0-2.0); HEMATOCRIT 27.3 % (32.4-45.2); HEMOGLOBIN 8.9 GM/dL (10.7-15.3); LYMPH % 16.4 % (8-40); MCH 25.5 pg (25.7-33.7); MCHC 32.4 g/dl (32.0-36.0); MEAN CELL VOLUME 78.7 fl (80-96); MEAN PLT VOLUME 8.2 fl (7.5-11.1); MONO % 10.1 % (3.8-10.2); NEUT % 68.7 % (42.8-82.8); PLATELET COUNT 243 10^3/uL (134-434); RBC 3.47 M/mm3 (3.60-5.2); RDW 16.2 % (11.6-15.6); WHITE BLOOD COUNT 7.7 K/mm3 (4.0-10.0)
[2023-11-04 09:23] LABS: BLOOD UREA NITROGEN 11.2 mg/dL (7-18)
[2023-11-04 09:24] LABS: ALBUMIN 2.9 g/dl (3.4-5.0)
[2023-11-04 09:26] LABS: CREATININE 0.6 mg/dL (0.55-1.3)
[2023-11-04 09:27] LABS: TOT PROT 6.6 g/dl (6.4-8.2)
[2023-11-04 09:29] LABS: BILIRUBIN,TOTAL 0.7 mg/dL (0.2-1)
[2023-11-04] MEDS: MEMANTINE HCL 10 MG TABLET (FP) PO SCH ×2 (09:57→21:53)
[2023-11-04] MEDS: PANTOPRAZOLE 20 MG TABLET PO SCH (09:57)
[2023-11-04] MEDS: LISINOPRIL 5 MG TABLET PO SCH ×2 (09:57→21:52)
[2023-11-04] MEDS: POLYETHYLENE GLYCOL (HEALTHYLAX) 3350 17 GM PACKET PO SCH (09:59)
[2023-11-04] MEDS: CEFTRIAXONE 1 GM in DEXTROSE 5%-WATER - 50 ML IVPB SCH (10:01)
[2023-11-04] MEDS: LIDOCAINE 4% PATCH TP SCH (10:11)
[2023-11-04 10:30] LABS: ERYTHROCYTE SEDIMENTATION RATE 28 mm/hr (0-30)
[2023-11-04 10:50] LABS: URINE APPEARANCE CLEAR; URINE BILIRUBIN NEGATIVE (NEGATIVE); URINE COLOR YELLOW; URINE GLUCOSE (UA) 2+ (NEGATIVE); URINE KETONE NEGATIVE (NEGATIVE); URINE LEUK ESTERASE NEGATIVE (NEGATIVE); URINE NITRITE NEGATIVE (NEGATIVE); URINE PROTEIN NEGATIVE (NEGATIVE); URINE UROBILINOGEN 0.2 mg/dL (0.2-1.0)
[2023-11-04] MEDS ORDERED: ACETAMINOPHEN 325 MG TABLET (FP) PO PRN (19:09)
[2023-11-04] MEDS: traMADol HCL 50 MG TABLET PO PRN (19:52)
[2023-11-04] MEDS: ATORVASTATIN CA 10 MG TABLET (FP) PO SCH (21:52)
[2023-11-04] MEDS: LIDOCAINE PATCH REMOVAL MC SCH (21:55)
[2023-11-05] MEDS: SODIUM CHLORIDE 1,000 ML IV SCH ×3 (06:52→18:41)
[2023-11-05] MEDS: LEVOTHYROXINE NA 50 MCG TABLET (FP) PO SCH (06:53)
[2023-11-05] MEDS: INSULIN SLIDING SCALE (NOVOLOG) 1 VIAL SQ SCH ×4 (07:13→22:11)
[2023-11-05 08:27] LABS: BASO % 1.1 % (0-2.0); EOS % 3.8 % (0-4.5); HEMATOCRIT 26.4 % (32.4-45.2); HEMOGLOBIN 8.7 GM/dL (10.7-15.3); LYMPH % 24.1 % (8-40); MCH 25.6 pg (25.7-33.7); MCHC 32.9 g/dl (32.0-36.0); MEAN CELL VOLUME 77.7 fl (80-96); MEAN PLT VOLUME 8.3 fl (7.5-11.1); MONO % 12.3 % (3.8-10.2); NEUT % 58.7 % (42.8-82.8); PLATELET COUNT 251 10^3/uL (134-434); RDW 16.4 % (11.6-15.6); WHITE BLOOD COUNT 7.2 K/mm3 (4.0-10.0)
[2023-11-05 08:52] LABS: POTASSIUM 3.8 mmol/L (3.5-5.1)
[2023-11-05 09:05] LABS: BLOOD UREA NITROGEN 10.8 mg/dL (7-18)
[2023-11-05 09:07] LABS: ALBUMIN 2.7 g/dl (3.4-5.0); MAGNESIUM 1.8 mg/dL (1.8-2.4)
[2023-11-05 09:09] LABS: CREATININE 0.5 mg/dL (0.55-1.3); PHOSPHOROUS 3.2 mg/dL (2.5-4.9)
[2023-11-05 09:11] LABS: BILIRUBIN,TOTAL 1.1 mg/dL (0.2-1); TOT PROT 6.5 g/dl (6.4-8.2)
[2023-11-05] MEDS: CEFTRIAXONE 1 GM in DEXTROSE 5%-WATER - 50 ML IVPB SCH (10:39)
[2023-11-05] MEDS: POLYETHYLENE GLYCOL (HEALTHYLAX) 3350 17 GM PACKET PO SCH (10:39)
[2023-11-05] MEDS: LIDOCAINE 4% PATCH TP SCH (10:40)
[2023-11-05] MEDS: PANTOPRAZOLE 20 MG TABLET PO SCH (10:41)
[2023-11-05] MEDS: LISINOPRIL 5 MG TABLET PO SCH ×2 (10:41→22:05)
[2023-11-05] MEDS: MEMANTINE HCL 10 MG TABLET (FP) PO SCH ×2 (10:41→22:36)
[2023-11-05] MEDS: traMADol HCL 50 MG TABLET PO PRN (11:34)
[2023-11-05] MEDS ORDERED: INSULIN (NOVOLOG) ASPART 100 UNITS/ML 10ML VIAL ONE (16:07)
[2023-11-05] MEDS: ATORVASTATIN CA 10 MG TABLET (FP) PO SCH (22:05)
[2023-11-05] MEDS: LIDOCAINE PATCH REMOVAL MC SCH (22:05)
[2023-11-06] MEDS: SODIUM CHLORIDE 1,000 ML IV SCH (06:20)
[2023-11-06] MEDS: LEVOTHYROXINE NA 50 MCG TABLET (FP) PO SCH (06:21)
[2023-11-06] MEDS: traMADol HCL 50 MG TABLET PO PRN ×2 (06:21→22:07)
[2023-11-06] MEDS: INSULIN SLIDING SCALE (NOVOLOG) 1 VIAL SQ SCH ×4 (06:31→22:13)
[2023-11-06 08:11] LABS: BASO % 1.2 % (0-2.0); EOS % 3.3 % (0-4.5); HEMATOCRIT 26.7 % (32.4-45.2); HEMOGLOBIN 8.6 GM/dL (10.7-15.3); LYMPH % 20.9 % (8-40); MCH 24.8 pg (25.7-33.7); MCHC 32.3 g/dl (32.0-36.0); MEAN PLT VOLUME 8.5 fl (7.5-11.1); NEUT % 63.6 % (42.8-82.8); PLATELET COUNT 275 10^3/uL (134-434); RBC 3.47 M/mm3 (3.60-5.2); RDW 16.7 % (11.6-15.6); WHITE BLOOD COUNT 7.6 K/mm3 (4.0-10.0)
[2023-11-06 08:30] LABS: POTASSIUM 3.9 mmol/L (3.5-5.1)
[2023-11-06 08:59] LABS: CALCIUM 8.4 mg/dL (8.5-10.1)
[2023-11-06 09:01] LABS: ALBUMIN 2.8 g/dl (3.4-5.0)
[2023-11-06 09:04] LABS: BILIRUBIN,TOTAL 0.7 mg/dL (0.2-1); CREATININE 0.5 mg/dL (0.55-1.3)
[2023-11-06 09:06] LABS: TOT PROT 6.8 g/dl (6.4-8.2)
[2023-11-06] MEDS: LIDOCAINE 4% PATCH TP SCH (09:41)
[2023-11-06] MEDS: POLYETHYLENE GLYCOL (HEALTHYLAX) 3350 17 GM PACKET PO SCH (09:41)
[2023-11-06] MEDS: LISINOPRIL 5 MG TABLET PO SCH ×2 (09:43→22:05)
[2023-11-06] MEDS: PANTOPRAZOLE 20 MG TABLET PO SCH (09:43)
[2023-11-06] MEDS: MEMANTINE HCL 10 MG TABLET (FP) PO SCH ×2 (09:43→22:06)
[2023-11-06] MEDS: ATORVASTATIN CA 10 MG TABLET (FP) PO SCH (22:06)
[2023-11-06] MEDS: LIDOCAINE PATCH REMOVAL MC SCH (22:07)
[2023-11-07] MEDS: SODIUM CHLORIDE 1,000 ML IV SCH (05:00)
[2023-11-07] MEDS ORDERED: INSULIN (NOVOLOG) ASPART 100 UNITS/ML 10ML VIAL ONE (06:03)
[2023-11-07] MEDS: LEVOTHYROXINE NA 50 MCG TABLET (FP) PO SCH (06:45)
[2023-11-07 08:23] LABS: EOS % 3.6 % (0-4.5); HEMATOCRIT 28.3 % (32.4-45.2); HEMOGLOBIN 9.1 GM/dL (10.7-15.3); LYMPH % 21.8 % (8-40); MCH 25.1 pg (25.7-33.7); MCHC 32.1 g/dl (32.0-36.0); MEAN CELL VOLUME 78.2 fl (80-96); MEAN PLT VOLUME 8.1 fl (7.5-11.1); MONO % 9.4 % (3.8-10.2); NEUT % 64.2 % (42.8-82.8); PLATELET COUNT 306 10^3/uL (134-434); RBC 3.62 M/mm3 (3.60-5.2); RDW 16.9 % (11.6-15.6); WHITE BLOOD COUNT 9.3 K/mm3 (4.0-10.0)
[2023-11-07 08:41] LABS: POTASSIUM 4.3 mmol/L (3.5-5.1)
[2023-11-07 08:54] LABS: BLOOD UREA NITROGEN 10.4 mg/dL (7-18); CALCIUM 8.7 mg/dL (8.5-10.1)
[2023-11-07 08:57] LABS: CREATININE 0.6 mg/dL (0.55-1.3)
[2023-11-07 08:59] LABS: TOT PROT 7.2 g/dl (6.4-8.2)
[2023-11-07] MEDS: POLYETHYLENE GLYCOL (HEALTHYLAX) 3350 17 GM PACKET PO SCH (09:58)
[2023-11-07] MEDS: LISINOPRIL 5 MG TABLET PO SCH ×2 (09:59→21:36)
[2023-11-07] MEDS: PANTOPRAZOLE 20 MG TABLET PO SCH (09:59)
[2023-11-07] MEDS: LIDOCAINE 4% PATCH TP SCH (09:59)
[2023-11-07] MEDS: MEMANTINE HCL 10 MG TABLET (FP) PO SCH ×2 (10:43→21:36)
[2023-11-07] MEDS: INSULIN SLIDING SCALE (NOVOLOG) 1 VIAL SQ SCH ×3 (16:35→21:41)
[2023-11-07] MEDS: traMADol HCL 50 MG TABLET PO PRN (16:36)
[2023-11-07] MEDS: ATORVASTATIN CA 10 MG TABLET (FP) PO SCH (21:36)
[2023-11-07] MEDS: LIDOCAINE PATCH REMOVAL MC SCH (21:42)
[2023-11-08] MEDS: LEVOTHYROXINE NA 50 MCG TABLET (FP) PO SCH (06:23)
[2023-11-08] MEDS: INSULIN SLIDING SCALE (NOVOLOG) 1 VIAL SQ SCH ×2 (06:30→11:48)
[2023-11-08 08:27] LABS: BASO % 0.9 % (0-2.0); EOS % 3.2 % (0-4.5); HEMOGLOBIN 8.4 GM/dL (10.7-15.3); LYMPH % 18.2 % (8-40); MCH 25.2 pg (25.7-33.7); MCHC 32.3 g/dl (32.0-36.0); MONO % 8.9 % (3.8-10.2); NEUT % 68.8 % (42.8-82.8); PLATELET COUNT 303 10^3/uL (134-434); RBC 3.34 M/mm3 (3.60-5.2); RDW 16.9 % (11.6-15.6); WHITE BLOOD COUNT 8.2 K/mm3 (4.0-10.0)
[2023-11-08 09:45] LABS: ALBUMIN 2.8 g/dl (3.4-5.0); BILIRUBIN,TOTAL 0.8 mg/dL (0.2-1); CALCIUM 8.4 mg/dL (8.5-10.1); CREATININE 0.6 mg/dL (0.55-1.3); POTASSIUM 3.9 mmol/L (3.5-5.1); TOT PROT 6.5 g/dl (6.4-8.2)
[2023-11-08] MEDS: PANTOPRAZOLE 20 MG TABLET PO SCH (10:58)
[2023-11-08] MEDS: LISINOPRIL 5 MG TABLET PO SCH (10:58)
[2023-11-08] MEDS: LIDOCAINE 4% PATCH TP SCH (10:58)
[2023-11-08] MEDS: MEMANTINE HCL 10 MG TABLET (FP) PO SCH (10:58)
[2023-11-08] MEDS: POLYETHYLENE GLYCOL (HEALTHYLAX) 3350 17 GM PACKET PO SCH (10:58)
[2023-11-08] MEDS ORDERED: INSULIN (NOVOLOG) ASPART 100 UNITS/ML 10ML VIAL ONE (11:46)
[2023-11-08 14:32] VITALS: BP 149/64; PULSE 65; RESP 20; TEMP 97.9
== END 2023-11-08 15:45 | DRG 605 ==
LOC: JER 09:03 → JERBED 20:48 → J7W 11-01 05:21 → OBSVTOIN 11-03 17:50
PROVIDERS: ADMIT Internal Medicine; ATTEND Internal Medicine
DX: S80.11XA Contusion of right lower leg, initial encounter (principal); I10 Essential (primary) hypertension; E78.5 Hyperlipidemia, unspecified; E03.9 Hypothyroidism, unspecified; I48.91 Unspecified atrial fibrillation; D72.829 Elevated white blood cell count, unspecified; R51.9 Headache, unspecified; K59.00 Constipation, unspecified; R91.1 Solitary pulmonary nodule; R50.9 Fever, unspecified; I27.20 Pulmonary hypertension, unspecified; I71.40 Abdominal aortic aneurysm, without rupture, unspecified; E11.9 Type 2 diabetes mellitus without complications; V03.99XA Pedestrian with other conveyance injured in collision with car, pick-up truck or van, unspecified whether traffic or nontraffic accident, initial encounter; Y93.9 Activity, unspecified; Y92.480 Sidewalk as the place of occurrence of the external cause; Y99.9 Unspecified external cause status
CPT/HCPCS: 0241U-QW; 36415; 70450-TC; 71045-TC-FY; 71250-TC; 72125-TC; 72170-TC-FY; 73552-TC-LT-FY; 73552-TC-RT-FY; 73560-TC-LT-FY; 73560-TC-RT-FY; 73590-TC-LT-FY; 73590-TC-RT-FY; 73700-TC-RT; 74176-TC; 80048; 80053; 81003; 82550; 82962; 83735; 84100; 85025; 85027; 85651; 87040; 87086; 87635; 93005; 93010; 93306-TC; 93970-TC; 97116-GP; 97162-GP; 99285-25; G0378